=== PATIENT | male | born 1960 | race Caucasian/White ===

== ENCOUNTER 2017-07-22 21:42 | Emergency (ER) | payer MEDICARE ==
[~2017-07-22] VITALS: Ht 165.1 cm; Wt 71.0 kg
[2017-07-22] MEDS ORDERED: DIVA500T35 PO (21:59)
[2017-07-22] MEDS ORDERED: DOCU250C91 PO (21:59)
[2017-07-22] MEDS ORDERED: LITH600 PO (21:59)
[2017-07-22] MEDS ORDERED: OLAN10TA3 PO (21:59)
[2017-07-22] MEDS ORDERED: DIPH25 PO (21:59)
[2017-07-22] MEDS ORDERED: ATOR10TA84 PO (21:59)
[2017-07-22] MEDS ORDERED: LISI-662 PO (21:59)
[2017-07-22] MEDS ORDERED: FLUP10 PO (21:59)
[2017-07-22] MEDS ORDERED: TRAZ-144 PO (21:59)
[2017-07-22] MEDS ORDERED: HEPATITIS A VACCINE, INACTI [ADULT] 1,440 UNITS/ML VIAL IM ONE (23:00)
[2017-07-23 00:05] VITALS: BP 145/76
== END 2017-07-23 00:19 | disposition home or self-care (01) ==
LOC: EMS 21:44
DX: R11.10 Vomiting, unspecified (principal); R19.7 Diarrhea, unspecified; Z23 Encounter for immunization; F31.9 Bipolar disorder, unspecified; F20.9 Schizophrenia, unspecified; Z88.8 Allergy status to other drugs, medicaments and biological substances
CPT/HCPCS: 90471; 90632; 99283

== ENCOUNTER 2025-08-11 08:49 | Inpatient (IN) | payer MEDICARE, MEDICAID ==
[~2025-08-11] VITALS: Ht 165.1 cm; Wt 64.0 kg
[~2025-08-11 08:49] MED LIST: ATOR10TA PO; DIPH-1243 PO; DIVA-112 PO; DOCU-412 PO; FLUP10TA28 PO; LISI-894 PO; LITH600C5 PO; OLAN10TA74 PO; TRAZ-252 PO
[2025-08-12] MEDS ORDERED: ZOLPIDEM TARTRATE 10 MG TABLET PO PRN (09:00)
[2025-08-12 12:54] VITALS: BP 146/88; PULSE 64; RESP 18; TEMP 96.8; O2SAT 98
[2025-08-12] MEDS ORDERED: ALBUTEROL SULFATE HFA 90 MCG/PUFF 8 GM INHALER IH PRN (20:00)
[2025-08-12] MEDS ORDERED: MAG HYDROX/ALUMINUM HYD/SIMETH ES 30 ML SUSPENSION UDCUP PO PRN (20:00)
[2025-08-12] MEDS ORDERED: ACETAMINOPHEN 325 MG TABLET PO PRN (20:00)
[2025-08-12] MEDS ORDERED: ONDANSETRON 4 MG TABLET PO PRN (20:00)
[2025-08-12] MEDS ORDERED: IBUPROFEN 400 MG TABLET PO PRN (20:00)
[2025-08-12] MEDS ORDERED: MAGNESIUM HYDROXIDE SUSPENSION 30 ML UDCUP PO PRN (20:00)
[2025-08-12] MEDS ORDERED: LOPERAMIDE HCL 2 MG CAPSULE PO PRN (20:00)
[2025-08-12] MEDS ORDERED: DOCUSATE SODIUM 100 MG CAPSULE PO PRN (20:00)
[2025-08-12] MEDS ORDERED: PETROLATUM,WHITE 28 GM JELLY TP PRN (20:00)
[2025-08-12] MEDS ORDERED: GuaiFENesin/D-METHORPHAN [SUGAR-FREE] 200-20MG/10 ML SYRUP UDCUP PO PRN (20:00)
[2025-08-12] MEDS ORDERED: NICOTINE 14 MG/24 HOUR PATCH TD PRN (20:00)
[2025-08-12 20:45] VITALS: BP 145/84; PULSE 62; RESP 18; TEMP 98.1; O2SAT 96
[2025-08-12] MEDS: ZOLPIDEM TARTRATE 5 MG TABLET PO PRN (21:27)
[2025-08-13 07:22] LABS: PLATELET COUNT (AUTO) 152 K/uL (150-450); RED BLOOD CELL COUNT(AUTO) 4.02 MIL/uL (4.50-5.90); RED CELL DISTRIBUTION WIDTH 14.7 % (11.5-14.5); WHITE BLOOD COUNT (AUTO) 7.7 K/uL (4.5-11.0)
[2025-08-13 07:39] LABS: CHOL/HDL RATIO 2.7 (4.2-7.3); LDL CHOL (CALC.) 49.0 mg/dL (0-130)
[2025-08-13 07:43] LABS: ASPARTATE AMINOTRANSFERASE 13 U/L (15-37); CALCIUM, TOTAL 9.1 mg/dL (8.8-10.5); CREATININE 1.15 mg/dL (0.60-1.30); GLOMERULAR FILTR. RATE CALC > 60 mL/min (>60); GLUCOSE,RANDOM 92 mg/dL (70-110); SODIUM SERUM 142 mmol/L (136-145); TOTAL PROTEIN, SERUM 5.6 g/dL (6.4-8.2); UREA NITROGEN, BLOOD 24 mg/dL (7-18)
[2025-08-13 08:10] VITALS: BP 130/80; PULSE 67; RESP 18; TEMP 97; O2SAT 95
[2025-08-13] MEDS: ATORVASTATIN CALCIUM 10 MG TABLET PO SCH (08:59)
[2025-08-13] MEDS: DIVALPROEX SODIUM 500 MG DR TABLET PO SCH (16:52)
[2025-08-13 19:13] LABS: APPEARANCE,URINE CLEAR (CLEAR); GLUCOSE, URINE (UA) NEGATIVE (NEGATIVE); LEUKOCYTE ESTERASE ,URINE NEGATIVE (NEGATIVE); NITRATE,URINE NEGATIVE (NEGATIVE); OCCULT BLOOD,URINE NEGATIVE (NEGATIVE); PH,URINE DRUG SCREEN 6.0 (5.0-8.0); SPECIFIC GRAVITIY, URINE 1.009 (1.003-1.030)
[2025-08-13 19:20] LABS: ALCOHOL, URINE DRUG SCREEN NEGATIVE (NEGATIVE); AMPHET/METH SCREEN,URINE NEGATIVE (NEGATIVE); BARBITURATE SCREEN, URINE NEGATIVE (NEGATIVE); CANNABINOID SCREEN,URINE NEGATIVE (NEGATIVE); COCAINE SCREEN,URINE NEGATIVE (NEGATIVE); METHADONE SCREEN, URINE NEGATIVE (NEGATIVE)
[2025-08-13 20:36] VITALS: BP 145/85; PULSE 56; RESP 18; TEMP 97.7; O2SAT 98
[2025-08-13] MEDS: LITHIUM CARBONATE 600 MG CAPSULE PO SCH (22:17)
[2025-08-14 10:23] VITALS: BP 136/93; PULSE 56; RESP 18; TEMP 97.6; O2SAT 98
[2025-08-14 22:07] VITALS: BP 136/70; PULSE 56; RESP 18; TEMP 97.5; O2SAT 97
[2025-08-15 10:27] VITALS: BP 151/100; PULSE 73; RESP 18; TEMP 98.6; O2SAT 95
[2025-08-16 09:22] VITALS: BP 113/64; PULSE 61; RESP 18; TEMP 98; O2SAT 98
[2025-08-16 20:52] VITALS: BP 174/97; PULSE 59; RESP 18; TEMP 98.2; O2SAT 99
[2025-08-17 09:26] VITALS: BP 139/97; PULSE 61; RESP 17; TEMP 97.5; O2SAT 97
[2025-08-17 20:25] VITALS: RESP 18; TEMP 97.7
[2025-08-18 17:29] VITALS: BP 145/100; PULSE 79; RESP 18; TEMP 97.8; O2SAT 97
[2025-08-18 20:00] VITALS: RESP 18; TEMP 97.5
[2025-08-19 09:30] VITALS: BP 132/72; PULSE 59; RESP 19; TEMP 97.6; O2SAT 96
[2025-08-19 20:50] VITALS: BP 187/87; PULSE 64; RESP 18; TEMP 97.6; O2SAT 97
[2025-08-19 21:50] VITALS: BP 119/65; PULSE 51; RESP 18
[2025-08-20 09:25] VITALS: BP 126/90; PULSE 66; RESP 18; TEMP 98.2; O2SAT 100
[2025-08-20 21:10] VITALS: BP 122/75; PULSE 64; RESP 19; TEMP 98; O2SAT 97
[2025-08-21 10:13] VITALS: BP 125/87; PULSE 92; RESP 18; TEMP 97.7; O2SAT 96
[2025-08-21 20:59] VITALS: RESP 17
[2025-08-22 11:24] VITALS: BP 123/66; PULSE 51; RESP 18; TEMP 97.6; O2SAT 97
[2025-08-22 21:19] VITALS: BP 154/83; PULSE 65; RESP 18; TEMP 98.3; O2SAT 98
[2025-08-23 09:36] VITALS: BP 140/79; PULSE 71; RESP 18; TEMP 97.5; O2SAT 95
== END 2025-08-23 19:50 | DRG 885 ==
LOC: 3EX 08-12 10:51
PROVIDERS: ADMIT Psychiatry & Neurology Psychiatry; ATTEND Psychiatry & Neurology Psychiatry
PROC: GZ58ZZZ Individual Psychotherapy, Cognitive-Behavioral (ICD-10-PCS; 2025-08-13)
PROC: GZ56ZZZ Individual Psychotherapy, Supportive (ICD-10-PCS; 2025-08-13)
PROC: GZHZZZZ Group Psychotherapy (ICD-10-PCS; principal; 2025-08-15)
DX: F25.0 Schizoaffective disorder, bipolar type (principal); I10 Essential (primary) hypertension; E78.5 Hyperlipidemia, unspecified; F17.200 Nicotine dependence, unspecified, uncomplicated; D64.9 Anemia, unspecified; F41.9 Anxiety disorder, unspecified; Z88.8 Allergy status to other drugs, medicaments and biological substances; Z79.899 Other long term (current) drug therapy
CPT/HCPCS: 80053; 80061; 80164; 80178; 80307; 81003; 83036; 84443; 85025; 87081; 97162; 97530; G0378